=== PATIENT | female | born 1975 ===

== ENCOUNTER → 2021-01-21 | Outpatient (CLI) | payer BC | LOC: MC.RAD 14:21 | DX: Z12.31 Encounter for screening mammogram for malignant neoplasm of breast (principal); N63.10 Unspecified lump in the right breast, unspecified quadrant ==

== ENCOUNTER → 2021-01-30 | Outpatient (CLI) | payer BC | LOC: MC.RAD 08:54 | DX: N60.01 Solitary cyst of right breast (principal) ==